=== PATIENT | female | born 1995 | race Caucasian/White ===

== ENCOUNTER 2017-06-27 11:50 | Emergency (ER) | payer BC ==
[~2017-06-27] VITALS: Ht 170.2 cm; Wt 104.3 kg
--- NOTE | 2017-06-27 12:25 | PHYS DOC ---
Adult General Chief Complaint Chief Complaint: NAUSEA/VOMITING/DIARRHA HPI HPI Patient is a 22 year old female who presents with pain and vomiting dark material. She states the pains been going on for last couple days and then this morning she vomited twice and when it was dark appearing. She denies any black tarry stools. She does use nonsteroidal medicines for headaches and chronic back pain. She states the abdominal pains worse when she lays flat and is very inconsistent goes away at times. She denies any dizziness, lightheadedness fevers chills or shortness of breath. She originally presented to urgent care about her the story of her vomiting blood or any dark substances that could be blood they sent her to the ER. Review of Systems Review of Systems Constitutional: Denies fever or chills [] Eyes: Denies change in visual acuity, redness, or eye pain [] HENT: Denies nasal congestion or sore throat [] Respiratory: Denies cough or shortness of breath [] Cardiovascular: No additional information not addressed in HPI [] GI: Positive for abdominal pain, nausea, vomiting, Denies bloody stools or diarrhea [] : Denies dysuria or hematuria [] Musculoskeletal: Denies back pain or joint pain [] Integument: Denies rash or skin lesions [] Neurologic: Denies headache, focal weakness or sensory changes [] Endocrine: Denies polyuria or polydipsia [] Current Medications Current Medications Current Medications Medications (Trade) Dose Ordered Sig/Rene Start Time Stop Time Status Last Admin Dose Admin Multi-Ingredient Mouthwash/Gargle (Gi Cocktail Single Dose) 15 ml 1X ONCE 06/27/17 13:15 06/27/17 13:17 DC 06/27/17 13:25 15 ML Ondansetron HCl (Zofran) 4 mg 1X ONCE 06/27/17 12:30 06/27/17 13:17 DC 06/27/17 13:26 4 MG Sodium Chloride 1,000 ml @ 1,000 mls/hr 1X ONCE 06/27/17 12:30 06/27/17 13:29 DC 06/27/17 13:13 1,000 MLS/HR Allergies Allergies Allergies Coded Allergies Type Severity Reaction Last Updated Verified Penicillins Allergy Severe black out 06/27/17 Yes naproxen Allergy Intermediate HIVES 06/27/17 Yes red dye Allergy Intermediate RASH/HIVES 06/27/17 Yes Physical Exam Physical Exam Constitutional: Well developed, well nourished, no acute distress, non-toxic appearance. [] HENT: Normocephalic, atraumatic, bilateral external ears normal, oropharynx moist, no oral exudates, nose normal. [] Eyes: PERRLA, EOMI, conjunctiva normal, no discharge. [] Neck: Normal range of motion, no tenderness, supple, no stridor. [] Cardiovascular:Heart rate regular rhythm, no murmur [] Lungs & Thorax: Bilateral breath sounds clear to auscultation [] Abdomen: Bowel sounds normal, soft, mild tenderness to palpation in the epigastric area, no rebound or guarding, no masses, no pulsatile masses. [] Skin: Warm, dry, no erythema, no rash. [] Back: No tenderness, no CVA tenderness. [] Extremities: No tenderness, no cyanosis, no clubbing, ROM intact, no edema. [] Neurologic: Alert and oriented X 3, normal motor function, normal sensory function, no focal deficits noted. [] Psychologic: Affect normal, judgement normal, mood normal. [] Current Patient Data Vital Signs Vital Signs Date Time Temp Pulse Resp B/P (MAP) Pulse Ox O2 Delivery O2 Flow Rate FiO2 06/27/17 13:33 72 22 115/75 (88) 96 Room Air 06/27/17 12:22 98.0 98.0 Lab Values Laboratory Tests Test 06/27/17 11:31 06/27/17 12:22 06/27/17 12:48 06/27/17 14:22 POC Urine HCG, Qualitative Hcg negative (Negative) Urine Collection Type Unknown Urine Color Yellow Urine Clarity Clear Urine pH 7.5 Urine Specific [place] 1.010 Urine Protein Negative mg/dL (NEG-TRACE) Urine Glucose (UA) Negative mg/dL (NEG) Urine Ketones (Stick) Negative mg/dL (NEG) Urine Blood Moderate (NEG) Urine Nitrite Negative (NEG) Urine Bilirubin Negative (NEG) Urine Urobilinogen Dipstick 0.2 mg/dL (0.2 mg/dL) Urine Leukocyte Esterase Large (NEG) Urine RBC 1-2 /HPF (0-2) Urine WBC 5-10 /HPF (0-4) Urine Bacteria 0 /HPF (0-FEW) White Blood Count 8.2 x10^3/uL (4.0-11.0) Red Blood Count 4.67 x10^6/uL (3.50-5.40) Hemoglobin 13.7 g/dL (12.0-15.5) Hematocrit 40.9 % (36.0-47.0) Mean Corpuscular Volume 88 fL (79-100) Mean Corpuscular Hemoglobin 29 pg (25-35) Mean Corpuscular Hemoglobin Concent 34 g/dL (31-37) Red Cell Distribution Width 13.3 % (11.5-14.5) Platelet Count 283 x10^3/uL (140-400) Neutrophils (%) (Auto) 68 % (31-73) Lymphocytes (%) (Auto) 24 % (24-48) Monocytes (%) (Auto) 5 % (0-9) Eosinophils (%) (Auto) 2 % (0-3) Basophils (%) (Auto) 1 % (0-3) Neutrophils # (Auto) 5.6 x10^3uL (1.8-7.7) Lymphocytes # (Auto) 2.0 x10^3/uL (1.0-4.8) Monocytes # (Auto) 0.4 x10^3/uL (0.0-1.1) Eosinophils # (Auto) 0.2 x10^3/uL (0.0-0.7) Basophils # (Auto) 0.0 x10^3/uL (0.0-0.2) Sodium Level 137 mmol/L (136-145) Potassium Level 3.8 mmol/L (3.5-5.1) Chloride Level 101 mmol/L (98-107) Carbon Dioxide Level 28 mmol/L (21-32) Anion Gap 8 (6-14) Blood Urea Nitrogen 10 mg/dL (7-20) Creatinine 0.9 mg/dL (0.6-1.0) Estimated GFR (Cockcroft-Gault) 79.0 Glucose Level 97 mg/dL (70-99) Calcium Level 9.0 mg/dL (8.5-10.1) Total Bilirubin 0.4 mg/dL (0.2-1.0) Direct Bilirubin 0.1 mg/dL (0.0-0.2) Aspartate Amino Transferase (AST) 20 U/L (15-37) Alanine Aminotransferase (ALT) 28 U/L (14-59) Alkaline Phosphatase 88 U/L (46-116) Total Protein 8.1 g/dL (6.4-8.2) Albumin 3.9 g/dL (3.4-5.0) Stool Occult Blood Negative (NEG) Laboratory Tests 06/27/17 12:48 Laboratory Tests 06/27/17 12:48 EKG EKG [] Radiology/Procedures Radiology/Procedures [] Impressions: Abdominal pain Course & Med Decision Making Course & Med Decision Making Pertinent Labs and Imaging studies reviewed. (See chart for details) She refused a rectal exam notable was able to provide a stool sample. Stool samples negative. The remainder of her labs are normal. I do not believe she has any bleeding as based on her history it wasn't very suggestive of blood. She has white blood cells in her urine but no bacteria. I will go ahead and treat 3 days with Bactrim and have her start Pepcid AC, and avoid nonsteroidal use and substitute the Tylenol when appropriate. She is instructed to follow-up with primary care physician, return ER if she has black tarry stools, worsening pain, or other concerns. Her friends agreeable plan she is being discharged in stable condition this time. Dragon Disclaimer Dragon Disclaimer This electronic medical record was generated, in whole or in part, using a voice recognition dictation system. Departure Departure Impression: Primary Impression: Abdominal pain Disposition: 01 HOME, SELF-CARE Condition: STABLE Referrals: BALTA CHAND (PCP) Patient Instructions: Abdominal Pain (Nonspecific) Additional Instructions: I do not believe you have any bleeding in her stomach this time, based on your stool studies and your history and physical exam. You should avoid using ibuprofen/Advil/Motrin for the next several days and if you need to take something for pain you can try Tylenol and follow instructions on the bottle. You can use Pepcid before meals has instructed they can purchase over-the- counter as an acid shira to help protect her stomach and see if that won't heal. If you develop worsening pain, black tarry stools, bright red blood when you vomit, or you have other concerns, please return back to ER. You should follow up with primary care physician within the next 5 days. Scripts Sulfamethoxazole/Trimethoprim (BACTRIM 400-80 MG TABLET) 1 Each Tablet 1 TAB PO BID, #6 TAB Prov: GOPI OVALLE MD 06/27/17 Problem Qualifiers Primary Impression: Abdominal pain Abdominal location: epigastric Qualified Codes: R10.13 - Epigastric pain GOPI OVALLE MD Jun 27, 2017 12:25
[2017-06-27] MEDS ORDERED: ONDANSETRON PF 4 MG/2 ML VIAL. IV ONE (12:30)
[2017-06-27] MEDS ORDERED: IV NORMAL SALINE 1000ML BAG 1,000 ML IV ONE (12:30)
[2017-06-27 12:54] LABS: BILIRUBIN,URINE NEGATIVE (NEG); GLUCOSE,URINE NEGATIVE (NEG); NITRITE,URINE NEGATIVE (NEG); PH,URINE 7.5; PROTEIN,URINE NEGATIVE (NEG-TRACE); UROBILINOGEN,URINE 0.2 mg/dL (0.2 mg/dL)
[2017-06-27 13:00] LABS: BASO % 1 % (0-3); EOS % 2 % (0-3); HEMATOCRIT 40.9 % (36.0-47.0); HEMOGLOBIN 13.7 g/dL (12.0-15.5); LYMPH % 24 % (24-48); MEAN CORPUSCULAR HEMOGLOBIN 29 pg (25-35); MEAN CORPUSCULAR HGB CONC 34 g/dL (31-37); MEAN CORPUSCULAR VOLUME 88 fL (79-100); MONO % 5 % (0-9); NEUT % 68 % (31-73); PLATELET COUNT 283 x10^3/uL (140-400); RED BLOOD COUNT 4.67 x10^6/uL (3.50-5.40); RED CELL DISTRIBUTION WIDTH 13.3 % (11.5-14.5); WHITE BLOOD COUNT 8.2 x10^3/uL (4.0-11.0)
[2017-06-27 13:15] LABS: CREATININE 0.9 mg/dL (0.6-1.0); POTASSIUM 3.8 mmol/L (3.5-5.1)
[2017-06-27] MEDS ORDERED: LIDO:MAALOX:DONNATAL 1:1:1 15 ML SINGLE DOSE SWSW ONE (13:15)
[2017-06-27 13:21] LABS: ALBUMIN 3.9 g/dL (3.4-5.0); DIRECT BILIRUBIN 0.1 mg/dL (0.0-0.2); TOTAL BILIRUBIN 0.4 mg/dL (0.2-1.0); TOTAL PROTEIN 8.1 g/dL (6.4-8.2)
[2017-06-27 13:30] LABS: BACTERIA,URINE 0 /HPF (0-FEW)
[2017-06-27 14:30] VITALS: BP 109/85
[2017-06-27 14:35] LABS: NEG OBC FOB NEG; POS OBC FOB POS
[2017-06-27] MEDS ORDERED: SULF1TAB23 PO (14:47)
== END 2017-06-27 14:54 | disposition home or self-care (01) ==
LOC: ER 11:50
DX: R10.13 Epigastric pain (principal); R11.2 Nausea with vomiting, unspecified
CPT/HCPCS: 36415; 80048; 80076; 81001; 81025; 82274; 85025; 87086; 96361; 96374; 99285; J2405; J7030